=== PATIENT | female | born 1940 | race Caucasian/White ===

== ENCOUNTER 2018-03-29 19:23 | Emergency (ER) | payer BC, OTHER ==
[~2018-03-29] VITALS: Ht 156.2 cm; Wt 62.0 kg
[2018-03-29 19:31] VITALS: Ht 156.2 cm; Wt 62.0 kg
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
[2018-03-29] MEDS ORDERED: OXYCODONE IR HOME PACK PO ONE ×2 (22:19→22:30)
[2018-03-29] MEDS ORDERED: ACETAMINOPHEN 500 MG TAB PO STA (22:19)
[2018-03-29] MEDS ORDERED: ACETAMINOPHEN 500 MG TAB ONE (22:19)
[2018-03-29 23:03] VITALS: BP 189/102; PULSE 88; O2SAT 99
== END 2018-03-29 22:40 | disposition home or self-care (01) ==
LOC: C.EDB 19:25
DX: S42.001A Fracture of unspecified part of right clavicle, initial encounter for closed fracture (principal); S22.31XA Fracture of one rib, right side, initial encounter for closed fracture; R55 Syncope and collapse; V49.59XA Passenger injured in collision with other motor vehicles in traffic accident, initial encounter; Y92.415 Exit ramp or entrance ramp of street or highway as the place of occurrence of the external cause; I10 Essential (primary) hypertension; Z85.3 Personal history of malignant neoplasm of breast